=== PATIENT | female | born 1935 | race Caucasian/White ===

== ENCOUNTER 2019-05-09 05:25 | Emergency (ER) | payer MEDICARE ==
[~2019-05-09] VITALS: Ht 160 cm; Wt 60.8 kg
[~2019-05-09 05:25] MED LIST: ALBU90OI61 INH; ASPI325; ASPI325EC PO; ASPI81CH PO; ATEN50; ATOR40TA; BUDE6HFA INH; CHOL10002; CLOP75; CLOP75 PO; FOSI10; FURO40 PO; GABA100 PO; HYDACE5 PO; LISI20 PO; METO50 PO; METO50ER PO; NAPR220 PO; NITROGLYCERIN; PRAV10 PO; Percocet 5-3251 EACH PO; Pravachol40 MG PO
[2019-05-09 06:02] LABS: BASOPHILS ABSOLUTE AUTO 0.04 K/mm3 (0.00-0.23); BASOPHILS PERCENT AUTO 0 % (0-2); EOSINOPHILS ABSOLUTE AUTO 0.17 K/mm3 (0.00-0.68); EOSINOPHILS PERCENT AUTO 2 % (0-6); Hematocrit 44.8 % (33.0-51.0); Hemoglobin 14.6 g/dL (11.5-16.0); IMMATURE GRAN ABSOLUTE AUTO 0.03 K/mm3 (0.00-0.10); IMMATURE GRAN PERCENT AUTO 0 % (0-1); LYMPHOCYTES ABSOLUTE AUTO 1.61 K/mm3 (0.84-5.20); LYMPHOCYTES PERCENT AUTO 15 % (21-46); MONOCYTES ABSOLUTE AUTO 0.69 K/mm3 (0.16-1.47); MONOCYTES PERCENT AUTO 6 % (4-13); Mean Corpuscular HGB 30.4 pg (26.0-34.0); Mean Corpuscular HGB Conc 32.6 g/dL (31.5-36.5); Mean Corpuscular Volume 93 fL (80-100); NEUTROPHILS ABSOLUTE AUTO 8.54 K/mm3 (1.96-9.15); NEUTROPHILS PERCENT AUTO 77 % (41-73); RDW Coefficient Variation 13.2 % (11.7-14.2); RDW Standard Deviation 45.4 fL (35.1-46.3); Red Blood Cell Count 4.81 M/mm3 (3.80-5.20); White Blood Cell Count 11.08 K/mm3 (4.00-11.30)
[2019-05-09 06:10] LABS: Mean Platelet Volume 10.8 fL (9.1-12.4); Platelet Count 207 K/mm3 (150-400)
[2019-05-09 06:13] LABS: Alanine Aminotransfer (ALT/SGP 28 U/L (12-78); Albumin, Blood 3.6 g/dL (3.4-5.0); Alk Phos 67 U/L (50-136); Anion Gap 6 mmol/L (6-16); Aspartate Aminotrans (AST/SGOT 13 U/L (12-37); Bilirubin, Total 0.5 mg/dL (0.1-1.0); Blood Urea Nitrogen 16 mg/dL (8-24); Bun/Creatinine Ratio 31.1 (12.0-20.0); CO2, Blood 28 mmol/L (21-32); Calcium, Blood 8.6 mg/dL (8.5-10.1); Chloride, Blood 108 mmol/L (98-108); Creatinine, Blood 0.52 mg/dL (0.40-1.00); Globulin, Blood 3.6 g/dL (2.2-4.0); Glomerular Filtration Rate >60 (60-); Glucose, Blood 95 mg/dL (70-99); Potassium, Blood 3.9 mmol/L (3.5-5.5); Sodium, Blood 142 mmol/L (136-145); Total Protein, Blood 7.2 g/dL (6.4-8.2); Troponin I 0.027 ng/mL (0.000-0.040)
[2019-05-09] MEDS ORDERED: AZIT250 PO (07:45)
[2019-05-09] MEDS ORDERED: Prednisone20 MG PO (07:45)
== END 2019-05-09 08:11 | disposition home or self-care (01) ==
LOC: ER 05:25
PROVIDERS: Emergency Medicine
DX: J44.9 Chronic obstructive pulmonary disease, unspecified (principal); Z88.0 Allergy status to penicillin; Z88.2 Allergy status to sulfonamides; Z79.82 Long term (current) use of aspirin; Z79.899 Other long term (current) drug therapy; F17.210 Nicotine dependence, cigarettes, uncomplicated
CPT/HCPCS: 71046; 80053; 83880; 84484; 85025; 93005; 93010; 94640; 96374; 99285-25; J2930

== ENCOUNTER 2021-03-14 17:27 | Inpatient (IN) | payer MEDICARE ==
[~2021-03-14] VITALS: Ht 160 cm; Wt 66.8 kg
[~2021-03-14 17:27] MED LIST changes: +AZIT250 PO; +Prednisone20 MG PO
[2021-03-14 18:08] LABS: BASOPHILS ABSOLUTE AUTO 0.04 K/mm3 (0.00-0.23); BASOPHILS PERCENT AUTO 0 % (0-2); EOSINOPHILS ABSOLUTE AUTO 0.17 K/mm3 (0.00-0.68); EOSINOPHILS PERCENT AUTO 2 % (0-6); Hemoglobin 14.5 g/dL (11.5-16.0); IMMATURE GRAN ABSOLUTE AUTO 0.03 K/mm3 (0.00-0.10); IMMATURE GRAN PERCENT AUTO 0 % (0-1); LYMPHOCYTES ABSOLUTE AUTO 2.17 K/mm3 (0.84-5.20); LYMPHOCYTES PERCENT AUTO 23 % (21-46); MONOCYTES ABSOLUTE AUTO 0.72 K/mm3 (0.16-1.47); MONOCYTES PERCENT AUTO 8 % (4-13); Mean Corpuscular HGB 30.6 pg (26.0-34.0); Mean Corpuscular HGB Conc 32.2 g/dL (31.5-36.5); Mean Corpuscular Volume 95 fL (80-100); Mean Platelet Volume 10.8 fL (9.1-12.4); NEUTROPHILS ABSOLUTE AUTO 6.16 K/mm3 (1.96-9.15); NEUTROPHILS PERCENT AUTO 66 % (41-73); Platelet Count 202 K/mm3 (150-400); RDW Coefficient Variation 13.2 % (11.7-14.2); RDW Standard Deviation 46.3 fL (35.1-46.3); Red Blood Cell Count 4.74 M/mm3 (3.80-5.20); White Blood Cell Count 9.29 K/mm3 (4.00-11.30)
[2021-03-14 18:25] LABS: C-REACTIVE PROTEIN, EXT RANGE 0.701 mg/dL (0.000-0.300)
[2021-03-14 18:28] LABS: Alanine Aminotransfer (ALT/SGP 51 U/L (12-78); Albumin, Blood 3.3 g/dL (3.4-5.0); Albumin/Globulin Ratio 0.9 (0.8-1.8); Alk Phos 66 U/L (50-136); Anion Gap 4 mmol/L (6-16); Aspartate Aminotrans (AST/SGOT 33 U/L (12-37); Bilirubin, Total 0.7 mg/dL (0.1-1.0); Blood Urea Nitrogen 22 mg/dL (8-24); Bun/Creatinine Ratio 34.5 (12.0-20.0); CO2, Blood 27 mmol/L (21-32); Calcium, Blood 8.6 mg/dL (8.5-10.1); Chloride, Blood 107 mmol/L (98-108); Creatinine, Blood 0.64 mg/dL (0.40-1.00); Globulin, Blood 3.5 g/dL (2.2-4.0); Glomerular Filtration Rate >60 (60-); Glucose, Blood 88 mg/dL (70-99); Potassium, Blood 4.1 mmol/L (3.5-5.5); Sodium, Blood 138 mmol/L (136-145); Total Protein, Blood 6.8 g/dL (6.4-8.2)
[2021-03-14] MEDS ORDERED: OXYB5 (22:59)
[2021-03-14] MEDS ORDERED: LIPITOR80 MG PO (22:59)
[2021-03-14] MEDS ORDERED: STIOLTO RESPIMAT4 G1 IH (22:59)
[2021-03-15 00:11] LABS: SARS-Cov-2 (COVID-19) PCR, MMC NEGATIVE (NEGATIVE)
--- NOTE | 2021-03-15 01:16 | NUR ---
PT ALERT AND ORIENTED TO PERSON, TIME AND SITUATION. RESTING ON BED QUIETLY, NO ACUTE DISTRESS OBSERVED. NO COMPLAING OF PAIN
--- NOTE | 2021-03-15 05:10 | NUR ---
SHIFT SUMMARY RECEIVED PT FROM ER. REPORT RECEIVED FROM [facility]A ER NURSE. PT ALERT AND ORIENTED. DAUGHTER AT BEDSIDE. WHEN THIS NURSE WENT OVER MEDICATION. DISCREPENCIES FOUND IN SOME DOSAGE. TISHA WAS CALLED TO BRING MEDS FROM HOME TO VERIFY DOSAGE. FAMILY WANT TO BE INVOLVED IN CARE. PICTURE OF THE WOUND TAKEN, PLACE ON PT CHART. AND DRY DRESSING PUT OVER IT. KEEP MONITORING
[2021-03-15 08:49] LABS: Hemoglobin 14.8 g/dL (11.5-16.0); Mean Corpuscular HGB 30.7 pg (26.0-34.0); Mean Corpuscular HGB Conc 32.9 g/dL (31.5-36.5); Mean Corpuscular Volume 93 fL (80-100); Mean Platelet Volume 11.2 fL (9.1-12.4); Platelet Count 208 K/mm3 (150-400); RDW Coefficient Variation 13.2 % (11.7-14.2); RDW Standard Deviation 45.8 fL (35.1-46.3); Red Blood Cell Count 4.82 M/mm3 (3.80-5.20)
--- NOTE | 2021-03-15 17:57 | NUR ---
SHIFT SUMMARY PATIENT DENIES PAIN, NAUSEA, AND SHORTNESS OF BREATH. PATIENT IS A SBA TO THE BS. PATIENT HAD A BEDSIDE I&D PERFORMED TODAY BY DR. SALGADO. PATIENT TOLERATED WELL. WOUND VAC WAS PLACED. DR. SALGADO PLACED ORDERS FOR DRESSING CHANGES. PATIENT'S MED RED WAS COMPLETED, DAUGHTER BROUGHT MEDICATIONS. PATIENT IS EATING AND DRINING WELL. PATIENT IS PLEASANT AND COOPERATIVE WITH CARE.
[2021-03-15 21:24] LABS: Vancomycin, Trough 9.9 ug/mL (5.0-10.0)
--- NOTE | 2021-03-16 05:40 | NUR ---
SHIFT SUMMARY PATIENT ALERT AND ORIENTED. HAD NO COMPLAINTS OF PAIN OR SHORTNESS OF BREATH. NO ACUTE ISSUES NOTED OVERNIGHT. CALL LIGHT WITHIN REACH. REPORT GIVEN TO ONCOMING RN.
[2021-03-16] MEDS ORDERED: VISBIOME 112.51 EACH PO (11:50)
[2021-03-16] MEDS ORDERED: CLINDAMYCIN HC300 MG PO (11:52)
--- NOTE | 2021-03-16 13:35 | NUR ---
DISCHARGE NOTE PATIENT WAS DISCHARGED THIS SHIFT AT 1330 WITH DAUGHTER VIA WHEELCHAIR. THE PATIENT RECEIVED DISCHARGE INSTRUCTIONS, AND WOUND VAC TO TAKE HOME WITH THEM. PATIENT AND DAUGHTER VERBALIZED UNDERSTANDING OF INSTRUCTIONS.
== END 2021-03-16 13:30 | disposition home health service (06) | DRG 501 ==
LOC: ER 17:27 → MEDS 23:14 → ENPENDDIS 03-16 11:11 → MEDS 03-16 13:30
PROVIDERS: Internal Medicine; Physician Assistant; Student in an Organized Health Care Education/Training Program; ADMIT Internal Medicine
PROC: 0M940ZZ Drainage of Left Elbow Bursa and Ligament, Open Approach (ICD-10-PCS; principal; 2021-03-15)
PROC: 0MB40ZZ Excision of Left Elbow Bursa and Ligament, Open Approach (ICD-10-PCS; 2021-03-15)
DX: M71.122 Other infective bursitis, left elbow (principal); L03.114 Cellulitis of left upper limb; J44.9 Chronic obstructive pulmonary disease, unspecified; Z20.822 Contact with and (suspected) exposure to COVID-19; F17.210 Nicotine dependence, cigarettes, uncomplicated; I25.10 Atherosclerotic heart disease of native coronary artery without angina pectoris; I73.9 Peripheral vascular disease, unspecified; Z88.2 Allergy status to sulfonamides; Z85.3 Personal history of malignant neoplasm of breast; Z88.0 Allergy status to penicillin; Z95.5 Presence of coronary angioplasty implant and graft; Z95.2 Presence of prosthetic heart valve; Z98.890 Other specified postprocedural states; Z79.02 Long term (current) use of antithrombotics/antiplatelets; Z79.899 Other long term (current) drug therapy
CPT/HCPCS: 36415; 73080; 80053; 80202; 83605; 85025; 85027; 85651; 86140; 87040; 87070; 87077; 87186; 87205; 94640; 94760; 96365; 96366; 96372; 99284-25; A9270; G0378; J1650; J3370; J7030; U0004

== ENCOUNTER 2021-04-13 11:49 | Emergency (ER) | payer MEDICARE ==
[~2021-04-13] VITALS: Ht 160 cm; Wt 65.8 kg
[~2021-04-13 11:49] MED LIST changes: +CLINDAMYCIN HC300 MG PO; +LIPITOR80 MG PO; +OXYB5; +STIOLTO RESPIMAT4 G1 IH; +VISBIOME 112.51 EACH PO
[2021-04-13 12:26] LABS: BASOPHILS ABSOLUTE AUTO 0.03 K/mm3 (0.00-0.23); BASOPHILS PERCENT AUTO 0 % (0-2); EOSINOPHILS PERCENT AUTO 1 % (0-6); Hematocrit 41.6 % (33.0-51.0); Hemoglobin 13.5 g/dL (11.5-16.0); IMMATURE GRAN ABSOLUTE AUTO 0.05 K/mm3 (0.00-0.10); IMMATURE GRAN PERCENT AUTO 0 % (0-1); LYMPHOCYTES ABSOLUTE AUTO 1.62 K/mm3 (0.84-5.20); LYMPHOCYTES PERCENT AUTO 13 % (21-46); MONOCYTES PERCENT AUTO 6 % (4-13); Mean Corpuscular HGB 30.5 pg (26.0-34.0); Mean Corpuscular HGB Conc 32.5 g/dL (31.5-36.5); Mean Corpuscular Volume 94 fL (80-100); Mean Platelet Volume 11.9 fL (9.1-12.4); NEUTROPHILS ABSOLUTE AUTO 9.97 K/mm3 (1.96-9.15); NEUTROPHILS PERCENT AUTO 79 % (41-73); Platelet Count 160 K/mm3 (150-400); RDW Coefficient Variation 13.5 % (11.7-14.2); RDW Standard Deviation 46.8 fL (35.1-46.3); Red Blood Cell Count 4.42 M/mm3 (3.80-5.20); White Blood Cell Count 12.57 K/mm3 (4.00-11.30)
[2021-04-13 12:45] LABS: Alanine Aminotransfer (ALT/SGP 24 U/L (12-78); Albumin, Blood 2.9 g/dL (3.4-5.0); Albumin/Globulin Ratio 0.7 (0.8-1.8); Alk Phos 59 U/L (50-136); Anion Gap 8 mmol/L (6-16); Aspartate Aminotrans (AST/SGOT 24 U/L (12-37); Bilirubin, Total 0.6 mg/dL (0.1-1.0); Blood Urea Nitrogen 24 mg/dL (8-24); Bun/Creatinine Ratio 38.5 (12.0-20.0); CO2, Blood 28 mmol/L (21-32); Calcium, Blood 8.7 mg/dL (8.5-10.1); Chloride, Blood 103 mmol/L (98-108); Creatinine, Blood 0.62 mg/dL (0.40-1.00); Globulin, Blood 4.1 g/dL (2.2-4.0); Glomerular Filtration Rate >60 (60-); Glucose, Blood 107 mg/dL (70-99); Potassium, Blood 3.6 mmol/L (3.5-5.5); Sodium, Blood 139 mmol/L (136-145)
[2021-04-13] MEDS ORDERED: DOXY100 PO (14:12)
== END 2021-04-13 14:40 | disposition home or self-care (01) ==
LOC: ER 11:49
PROVIDERS: Physician Assistant
DX: L03.114 Cellulitis of left upper limb (principal); J44.9 Chronic obstructive pulmonary disease, unspecified; F17.210 Nicotine dependence, cigarettes, uncomplicated; Z88.0 Allergy status to penicillin; Z88.2 Allergy status to sulfonamides; Z79.899 Other long term (current) drug therapy
CPT/HCPCS: 36415; 80053; 85025; 93971; 99284-25; A9270; J7030

== ENCOUNTER 2021-04-17 01:52 | Day surgery (SDC) | payer MEDICARE ==
[~2021-04-17 01:52] MED LIST changes: +DOXY100 PO
== END 2021-04-17 23:18 | disposition home or self-care (01) ==
LOC: WOUND 01:52
DX: M71.122 Other infective bursitis, left elbow (principal); L03.114 Cellulitis of left upper limb; Z88.0 Allergy status to penicillin; Z88.2 Allergy status to sulfonamides; Z87.891 Personal history of nicotine dependence
CPT/HCPCS: A9270; G0463

== ENCOUNTER 2021-04-24 01:55 | Day surgery (SDC) | payer MEDICARE | END 2021-04-24 23:00 | disposition home or self-care (01) | LOC: WOUND 01:55 | DX: L03.119 Cellulitis of unspecified part of limb (principal); M71.122 Other infective bursitis, left elbow | CPT/HCPCS: G0463 ==

== ENCOUNTER 2021-05-01 05:11 | Day surgery (SDC) | payer MEDICARE | END 2021-05-01 23:13 | disposition home or self-care (01) | LOC: WOUND 05:11 | DX: L03.119 Cellulitis of unspecified part of limb (principal); M71.122 Other infective bursitis, left elbow | CPT/HCPCS: A9270; G0463 ==

== ENCOUNTER 2021-05-22 07:39 | Day surgery (SDC) | payer MEDICARE | END 2021-05-23 23:50 | disposition home or self-care (01) | LOC: WOUND 07:39 | DX: M71.122 Other infective bursitis, left elbow (principal); L03.114 Cellulitis of left upper limb | CPT/HCPCS: A9270; G0463 ==

== ENCOUNTER 2021-05-30 02:05 | Inpatient (IN) | payer MEDICARE ==
[~2021-05-30] VITALS: Ht 157.5 cm; Wt 67.6 kg
[2021-05-30 02:44] LABS: BASOPHILS ABSOLUTE AUTO 0.08 K/mm3 (0.00-0.23); BASOPHILS PERCENT AUTO 1 % (0-2); EOSINOPHILS ABSOLUTE AUTO 0.38 K/mm3 (0.00-0.68); EOSINOPHILS PERCENT AUTO 3 % (0-6); Hematocrit 45.1 % (33.0-51.0); Hemoglobin 14.4 g/dL (11.5-16.0); IMMATURE GRAN ABSOLUTE AUTO 0.04 K/mm3 (0.00-0.10); IMMATURE GRAN PERCENT AUTO 0 % (0-1); LYMPHOCYTES ABSOLUTE AUTO 3.87 K/mm3 (0.84-5.20); LYMPHOCYTES PERCENT AUTO 32 % (21-46); MONOCYTES ABSOLUTE AUTO 0.67 K/mm3 (0.16-1.47); MONOCYTES PERCENT AUTO 6 % (4-13); Mean Corpuscular HGB 30.6 pg (26.0-34.0); Mean Corpuscular HGB Conc 31.9 g/dL (31.5-36.5); Mean Corpuscular Volume 96 fL (80-100); NEUTROPHILS ABSOLUTE AUTO 7.05 K/mm3 (1.96-9.15); NEUTROPHILS PERCENT AUTO 58 % (41-73); RDW Coefficient Variation 13.8 % (11.7-14.2); RDW Standard Deviation 49.5 fL (35.1-46.3); Red Blood Cell Count 4.71 M/mm3 (3.80-5.20); White Blood Cell Count 12.09 K/mm3 (4.00-11.30)
[2021-05-30 02:48] LABS: Platelet Count 185 K/mm3 (150-400)
[2021-05-30 03:02] LABS: Alanine Aminotransfer (ALT/SGP 19 U/L (12-78); Albumin/Globulin Ratio 1.2 (0.8-1.8); Alk Phos 59 U/L (50-136); Anion Gap 7 mmol/L (6-16); Aspartate Aminotrans (AST/SGOT 19 U/L (12-37); Bilirubin, Total 0.5 mg/dL (0.1-1.0); Blood Urea Nitrogen 30 mg/dL (8-24); Bun/Creatinine Ratio 50.8 (12.0-20.0); CO2, Blood 27 mmol/L (21-32); Calcium, Blood 8.6 mg/dL (8.5-10.1); Chloride, Blood 105 mmol/L (98-108); Creatinine, Blood 0.59 mg/dL (0.40-1.00); Globulin, Blood 3.4 g/dL (2.2-4.0); Glomerular Filtration Rate >60 (60-); Glucose, Blood 183 mg/dL (70-99); Potassium, Blood 4.4 mmol/L (3.5-5.5); Sodium, Blood 139 mmol/L (136-145); Total Protein, Blood 7.4 g/dL (6.4-8.2); Troponin I <0.015 ng/mL (0.000-0.040)
[2021-05-30 03:21] LABS: Influenza A, PCR NEGATIVE (NEGATIVE); Influenza B, PCR NEGATIVE (NEGATIVE); Resp Syncytial Virus, PCR NEGATIVE (NEGATIVE); SARS-Cov-2 (COVID-19) PCR, MMC NEGATIVE (NEGATIVE)
[2021-05-30 05:29] LABS: Base Excess Venous 3.1 mmol/L; Bicarbonate Venous 25.3 mmol/L (24.0-30.0); PCO2 Venous 55.6 mmHg (38-42); PO2 Venous 37.7 mmHg (38-42); pH Blood Venous 7.33 (7.34-7.37)
[2021-05-30 10:28] LABS: Source, Urine Voided
[2021-05-30 10:31] LABS: Appearance, Urine Clear (Clear); Bilirubin, Urine Neg (Neg); Blood, Urine Neg (Neg); Color, Urine Yellow (P-Yellow); Glucose Qualitative, Urine Neg (Neg); Ketones, Urine Neg (Neg); Leukocyte Esterase, Urine Neg (Neg); Nitrite, Urine Neg (Neg); Protein, Urine 3+ (Neg); Urobilinogen, Urine NORM (Normal)
[2021-05-30 10:55] LABS: Red Blood Cells, Urine Not Seen /hpf (0-2); Squamous Epithelial Cells Rare /hpf (Few); White Blood Cells, Urine 0-2 /hpf (0-5)
[2021-05-30 10:56] LABS: Bacteria Rare /hpf; Hyaline Casts 0-2 /lpf (0-2); Mucus Mod (0-Heavy)
--- NOTE | 2021-05-30 17:14 | NUR ---
PT ARRIVED IN THE ROOM FROM ER APPROX 1445 REPORT RECEIVED FROM REJI RN, PT TRANSFERRED SBA FROM STRETCHER TO BED WITH NO ISSUES. PT IS HERE FOR ACUTE RESPI FAILURE. ALERT AND ORIENTED X4, PLEASANT AND COOPERATIVE. VITALS HRR SINUS WITH PAC'S AND PVC'S AT 90'S, BP SYSTOLIC 120'S, SATS ABOVE 95% ON RA, MILD SOB WITH EXERTION BIPAP ON STANDBY, AFEBRILE. PT HAS 1+ BILATERAL LE EDEMA, REDNESS ON COCCYX, HAS AN ALMOST HEALED SCAB ON LEFT ELBOW FROM PREVIOUS SURGERY PER PT. PT DENIES ANY PAIN. SON AT BEDSIDE AWARE OF THE PLAN OF CARE. COPY OF POLST ON FILE VERIFIED PT'S CODE STATUS WHICH IS CPR/FULL CODE. NO OTHER ISSUES REPORTED AT THIS TIME, PT ORIENTED TO ROOM AND USE OF CALL LIGHTS, ABLE TO MAKE NEEDS KNOWN, WILL MONITOR
[2021-05-31 04:17] LABS: Hematocrit 38.5 % (33.0-51.0); Hemoglobin 12.2 g/dL (11.5-16.0); Mean Corpuscular HGB 30.4 pg (26.0-34.0); Mean Corpuscular HGB Conc 31.7 g/dL (31.5-36.5); Mean Corpuscular Volume 96 fL (80-100); Mean Platelet Volume 11.7 fL (9.1-12.4); Platelet Count 190 K/mm3 (150-400); RDW Coefficient Variation 14.1 % (11.7-14.2); Red Blood Cell Count 4.01 M/mm3 (3.80-5.20); White Blood Cell Count 11.54 K/mm3 (4.00-11.30)
--- NOTE | 2021-05-31 05:22 | NUR ---
SHIFT SUMMARY PT RESTED WELL THROUGH THE NIGHT. ALERT AND ORIENTED, ABLE TO MAKE NEEDS KNOWN. COOPERATIVE WITH PLAN OF CARE. SATS >95% ON 2LNC, STEROIDS AND BREATHING TREATMENTS. BP SLIGHTLY ELEVATED, GAVE HYDRALAZINE WITH IMPROVEMENTS TO BP. TELE READS NSR - RATE 96. NO C/O CHEST PAIN. STAND BY ASSIST TO BSC - ADEQUATE UOP. NO PAIN. VSS. CALL LIGHT WITHIN REACH, BED IN LOWEST POSITION. WILL CONTINUE TO MONITOR.
[2021-05-31 05:23] LABS: Anion Gap 9 mmol/L (6-16); Blood Urea Nitrogen 29 mg/dL (8-24); Bun/Creatinine Ratio 53.8 (12.0-20.0); CO2, Blood 26 mmol/L (21-32); Chloride, Blood 104 mmol/L (98-108); Creatinine, Blood 0.54 mg/dL (0.40-1.00); Glomerular Filtration Rate >60 (60-); Glucose, Blood 128 mg/dL (70-99); Potassium, Blood 4.2 mmol/L (3.5-5.5); Sodium, Blood 139 mmol/L (136-145)
--- NOTE | 2021-05-31 12:05 | NUR ---
PATIENT ALERT AND ORIENTED X4. NEURO WNL. HISTORY OF STENTS IN LOWER LEGS PER PATIENT. PERRLA. DENIES NUMBNESS/TINGLING. USING BSC WITH SBA. ON 2L WHEN SLEEPING, AT THIS TIME SATING MID 90'S ON ROOM AIR. TELE SHOWING SINUS RHYTHM. DENIES CHEST PAIN/PRESSURE. VITAL SIGNS STABLE. DENIES OVERALL PAIN. ATTENDS IN PLACE. SKIN OVERALL FRAGILE AND REDNESS. HISTORY OF ELBOW WOUND THAT IS HEALING, CLEANED WITH IODINE AND DRESSED. WILL CONTINUE TO MONITOR.
--- NOTE | 2021-05-31 14:05 | NUR ---
TRANSFER: NO ACUTE CHANGES. SEE PREVIOUS NOTE. REPORTED OFF TO RN. TRANSFER UP TO MEDICAL FLOOR VIA WHEELCHAIR WITH ALL PERSONAL BELONGINGS.
--- NOTE | 2021-05-31 15:04 | NUR ---
PT CAME IN FROM PCU WITH ACUTE RESPT FAILURE WITH HYPOXIA WITH COPD EXACERBATION. ON RA, DYSPNEA ON EXERTION. PT IS ON 2L AT HOME WHEN SLEPING AT BASELINE. PT ALSO CAME IN WITH HTN CRISIS. PT HX OF CAD, NONHEALING LEFT ELBOW ULCER, OSAGE, NEUROPATHIC PAIN, AND AORIC VALVE REPLACEMENT. PT TAKES PILLS WHOLE. SHE IS ALERT AND ORIENTED X4. SON JASIEL AT BEDSIDE WHO IS THE PRIMARY SENIOR SCIENCE CONSULTANT. PT VERY PLEASANT. NS ON TELE PER GIG TENDER. PT HAS SCATTERRED REDDENED AND FRAGILE SKIN. DRESSED THE WOUND ON L ELBOW. PT HAS 20G ON LHAND,NO TELE.STANDBY ASSIST. CALL LIGHT IN REACH.
--- NOTE | 2021-05-31 17:41 | NUR ---
SHIFT SUMMARY PT AOX4; VERY [place]. SON IS PRIMARY CARE FOR THIS PT. PT IS ON 2L OF O2 ESPECIALLY DURING SLEEP. DYSPNEA ON EXERTION. DRESSING PLACED ON L ELBOW. RED BUTTOM; PT INDEPENDENTLY REPOSITION. STANDBY ASSIST. BED IS IN LOWEST POSITION AND CALL LIGHT WITHIN REACH.
[2021-06-01 04:43] LABS: Hemoglobin 13.1 g/dL (11.5-16.0); Mean Corpuscular HGB 30.6 pg (26.0-34.0); Mean Corpuscular Volume 96 fL (80-100); Mean Platelet Volume 11.1 fL (9.1-12.4); Platelet Count 180 K/mm3 (150-400); RDW Coefficient Variation 14.3 % (11.7-14.2); RDW Standard Deviation 50.3 fL (35.1-46.3); Red Blood Cell Count 4.28 M/mm3 (3.80-5.20); White Blood Cell Count 14.72 K/mm3 (4.00-11.30)
--- NOTE | 2021-06-01 05:00 | NUR ---
SHIFT SUMMARY PT HAS RESTED MOST OF THE NIGHT. PT STILL GETS VERY SOB WITH MINIMAL EXERTION. AFTER AMBULATING A SHORT DISTANCE FROM BED TO BSC AND BACK IT TAKES PT SEVERAL MINUTES TO RECOVER. PT EVEN REQUESTED THAT I INCREASE HER O2 FROM 2L TO 4L UNTIL SHE RECOVERED. PT O2 INCREASED AFTER AMBULATION FOR A SHORT PERIOD PER PT REQUEST AND DECREASED BACK DOWN TO 2L ONCE SHE RECOVERED. IV SOLUMEDROL CONTINUED ORDERED. PT HYPERTENSIVE THIS SHIFT, MEDICATED WITH HYDRALYZINE WITH AFFECT. PT HAD A SMALL BM THIS SHIFT, AND IS VOIDING WITHOUT DIFFICULTY NO ACUTE CHANGES TO REPORT OVERNIGHT. BED IN LOWEST POSITION, CALL LIGHT WITHIN REACH.
[2021-06-01 06:13] LABS: Albumin, Blood 3.5 g/dL (3.4-5.0); Anion Gap 7 mmol/L (6-16); Blood Urea Nitrogen 32 mg/dL (8-24); Bun/Creatinine Ratio 59.5 (12.0-20.0); CO2, Blood 25 mmol/L (21-32); Calcium, Blood 8.8 mg/dL (8.5-10.1); Chloride, Blood 105 mmol/L (98-108); Creatinine, Blood 0.54 mg/dL (0.40-1.00); Glomerular Filtration Rate >60 (60-); Glucose, Blood 139 mg/dL (70-99); Phosphorus, Blood 3.9 mg/dL (2.5-4.9); Potassium, Blood 4.5 mmol/L (3.5-5.5); Sodium, Blood 137 mmol/L (136-145)
--- NOTE | 2021-06-01 16:55 | NUR ---
SHIFT SUMMARRY PT AOX4; CALLS APPROPRIATELY. PT HAD A CHEST XRAY THIS AFTERNOON. PT RECEIVED A DOSE OF ABX, CONTINUING TO DIURESE THIS PT PER ORDER. PT STANDBY ASSIST. ON 2L OF O2; NO OTHER ACUTE CHANGES. BED IS IN THE LOWEST POSITION AND CALL LIGHT WITHIN REACH
[2021-06-02 04:29] LABS: Hematocrit 40.9 % (33.0-51.0); Hemoglobin 12.9 g/dL (11.5-16.0); Mean Corpuscular HGB 30.1 pg (26.0-34.0); Mean Corpuscular HGB Conc 31.5 g/dL (31.5-36.5); Mean Corpuscular Volume 95 fL (80-100); Mean Platelet Volume 11.1 fL (9.1-12.4); Platelet Count 178 K/mm3 (150-400); RDW Coefficient Variation 14.1 % (11.7-14.2); RDW Standard Deviation 49.4 fL (35.1-46.3); Red Blood Cell Count 4.29 M/mm3 (3.80-5.20); White Blood Cell Count 12.45 K/mm3 (4.00-11.30)
[2021-06-02 05:52] LABS: Albumin, Blood 3.3 g/dL (3.4-5.0); Anion Gap 9 mmol/L (6-16); Blood Urea Nitrogen 37 mg/dL (8-24); Bun/Creatinine Ratio 57.4 (12.0-20.0); CO2, Blood 29 mmol/L (21-32); Calcium, Blood 8.3 mg/dL (8.5-10.1); Chloride, Blood 102 mmol/L (98-108); Creatinine, Blood 0.65 mg/dL (0.40-1.00); Glomerular Filtration Rate >60 (60-); Glucose, Blood 129 mg/dL (70-99); Phosphorus, Blood 4.2 mg/dL (2.5-4.9); Potassium, Blood 4.6 mmol/L (3.5-5.5); Sodium, Blood 140 mmol/L (136-145)
--- NOTE | 2021-06-02 07:02 | NUR ---
85 YEAR OLD FEMALE EXSMOKER QUIT WITHIN LAST YEAR HAS BASELINE OXYGEN USE 2 L NC AT [facility]. lt ELBOW WITH CDI FOAM DRESSING. haS HELP AT HOME FROM sON
[2021-06-02] MEDS ORDERED: OXYB5 PO (11:49)
[2021-06-02] MEDS ORDERED: VITAMIN D5000 UNIT PO (11:50)
[2021-06-02] MEDS ORDERED: AZIT250 PO (11:50)
[2021-06-02] MEDS ORDERED: FURO20 PO (11:51)
[2021-06-02] MEDS ORDERED: Pulmicort Fle180 MCG INH (11:51)
[2021-06-02] MEDS ORDERED: Prednisone10 MG (11:53)
--- NOTE | 2021-06-02 13:15 | NUR ---
DISCHARGE NOTE PT DISCHARGING TO HOME TODAY WITH SON. PATIENT IS AxOx4. PLEASANT AND COOPERATIVE WITH CARE. PT GOING HOME WITH HOME HEALTH ORDERS. PT GIVEN DC INSTRUCTIONS, INCLUDING DC MEDS, PATIENT EDUCATION AND HH REFERRAL. PT SON ON PHONE LISTENING TO DC INSTRUCTIONS. BOTH VERBALIZED UNDERSTANDING AND NO FURTHER QUESTIONS. VITALS REVIEWED. PT SAFELY ESCORTED OUT VIA WC TO PRIVATE TRANSPORT.
--- NOTE | 2021-06-03 08:50 | NUR ---
Patient is a [facility] patient who was transferred to [facility] on 05/30/2021 due to acute respiratory failure with hypoxia. Patient discharged 06/02/2021 with resumption of home health orders. Gathered supporting documentation for resumption (face sheet, discharge order, med list, and H&P) and faxed to [facility] for review. No further interventions required. Yahaira Cruz Referral Liaison
== END 2021-06-02 13:24 | disposition home health service (06) | DRG 291 ==
LOC: ER 02:05 → ERHOLD 04:58 → MEDS 04:58 → PCU 04:58 → MEDS 05-31 13:55
PROVIDERS: Internal Medicine; Student in an Organized Health Care Education/Training Program; ADMIT Family Medicine
DX: I11.0 Hypertensive heart disease with heart failure (principal); J96.21 Acute and chronic respiratory failure with hypoxia; I50.33 Acute on chronic diastolic (congestive) heart failure; I24.8 Other forms of acute ischemic heart disease; I16.1 Hypertensive emergency; J44.1 Chronic obstructive pulmonary disease with (acute) exacerbation; I25.10 Atherosclerotic heart disease of native coronary artery without angina pectoris; Z20.822 Contact with and (suspected) exposure to COVID-19; Z95.5 Presence of coronary angioplasty implant and graft; Z95.3 Presence of xenogenic heart valve; G62.9 Polyneuropathy, unspecified; I73.9 Peripheral vascular disease, unspecified; Z99.81 Dependence on supplemental oxygen; E78.5 Hyperlipidemia, unspecified; Z88.2 Allergy status to sulfonamides; Z88.0 Allergy status to penicillin; Z85.51 Personal history of malignant neoplasm of bladder; Z79.899 Other long term (current) drug therapy; Z87.891 Personal history of nicotine dependence; D72.828 Other elevated white blood cell count; L98.499 Non-pressure chronic ulcer of skin of other sites with unspecified severity; M71.522 Other bursitis, not elsewhere classified, left elbow; Z53.29 Procedure and treatment not carried out because of patient's decision for other reasons
CPT/HCPCS: 0241U; 36415; 71045; 71046; 80048; 80053; 80069; 81001; 82803; 83880; 84145; 84484; 85025; 85027; 93005; 93010; 93306; 94640; 94644; 94660; 94760; 94762; 96374; 96375; 96376; 97110; 97116; 97161; 97165; 97530; 97535; 99285-25; A9270; J0360; J0456; J1650; J1940; J2930; J7050

== ENCOUNTER 2021-06-05 05:17 | Day surgery (SDC) | payer MEDICARE ==
[~2021-06-05 05:17] MED LIST changes: +FURO20 PO; +OXYB5 PO; +Prednisone10 MG; +Pulmicort Fle180 MCG INH; +VITAMIN D5000 UNIT PO
== END 2021-06-05 12:00 | disposition home or self-care (01) ==
LOC: WOUND 05:17
DX: Z09 Encounter for follow-up examination after completed treatment for conditions other than malignant neoplasm (principal); I11.9 Hypertensive heart disease without heart failure
CPT/HCPCS: A9270; G0463

== ENCOUNTER 2021-08-01 01:58 | Inpatient (IN) | payer MEDICARE ==
[~2021-08-01] VITALS: Ht 162.6 cm; Wt 66.8 kg
[~2021-08-01 01:58] MED LIST changes: -FURO20 PO
[2021-08-01 02:15] LABS: BASOPHILS ABSOLUTE AUTO 0.09 K/mm3 (0.00-0.23); BASOPHILS PERCENT AUTO 1 % (0-2); EOSINOPHILS PERCENT AUTO 3 % (0-6); Hematocrit 43.6 % (33.0-51.0); Hemoglobin 13.6 g/dL (11.5-16.0); IMMATURE GRAN ABSOLUTE AUTO 0.04 K/mm3 (0.00-0.10); IMMATURE GRAN PERCENT AUTO 0 % (0-1); LYMPHOCYTES ABSOLUTE AUTO 2.91 K/mm3 (0.84-5.20); LYMPHOCYTES PERCENT AUTO 21 % (21-46); MONOCYTES ABSOLUTE AUTO 0.72 K/mm3 (0.16-1.47); MONOCYTES PERCENT AUTO 5 % (4-13); Mean Corpuscular HGB 30.4 pg (26.0-34.0); Mean Corpuscular HGB Conc 31.2 g/dL (31.5-36.5); Mean Corpuscular Volume 97 fL (80-100); Mean Platelet Volume 11.4 fL (9.1-12.4); NEUTROPHILS ABSOLUTE AUTO 9.51 K/mm3 (1.96-9.15); NEUTROPHILS PERCENT AUTO 70 % (41-73); Platelet Count 194 K/mm3 (150-400); RDW Coefficient Variation 13.7 % (11.7-14.2); RDW Standard Deviation 49.1 fL (35.1-46.3); Red Blood Cell Count 4.48 M/mm3 (3.80-5.20); White Blood Cell Count 13.67 K/mm3 (4.00-11.30)
[2021-08-01 02:37] LABS: Alanine Aminotransfer (ALT/SGP 41 U/L (12-78); Albumin/Globulin Ratio 1.2 (0.8-1.8); Alk Phos 58 U/L (50-136); Anion Gap 5 mmol/L (6-16); Aspartate Aminotrans (AST/SGOT 32 U/L (12-37); Bilirubin, Total 0.7 mg/dL (0.1-1.0); Blood Urea Nitrogen 21 mg/dL (8-24); Bun/Creatinine Ratio 28.5 (12.0-20.0); CO2, Blood 30 mmol/L (21-32); Calcium, Blood 8.7 mg/dL (8.5-10.1); Chloride, Blood 107 mmol/L (98-108); Creatinine, Blood 0.74 mg/dL (0.40-1.00); Globulin, Blood 3.3 g/dL (2.2-4.0); Glomerular Filtration Rate >60 (60-); Glucose, Blood 140 mg/dL (70-99); Sodium, Blood 142 mmol/L (136-145); Total Protein, Blood 7.3 g/dL (6.4-8.2)
[2021-08-01 02:40] LABS: PCO2 Arterial 48.1 mmHg (35-45); PO2 Arterial 77.9 mmHg (80-100); pH Blood Arterial 7.36 (7.35-7.45)
[2021-08-01 03:04] LABS: Influenza A, PCR NEGATIVE (NEGATIVE); Influenza B, PCR NEGATIVE (NEGATIVE); Resp Syncytial Virus, PCR NEGATIVE (NEGATIVE); SARS-Cov-2 (COVID-19) PCR, MMC NEGATIVE (NEGATIVE)
[2021-08-01 11:42] LABS: Source, Urine Clean Catch
[2021-08-01 11:50] LABS: Bilirubin, Urine Neg (Neg); Blood, Urine Neg (Neg); Glucose Qualitative, Urine Neg (Neg); Ketones, Urine Neg (Neg); Leukocyte Esterase, Urine Neg (Neg); Nitrite, Urine Neg (Neg); Protein, Urine Neg (Neg); Urobilinogen, Urine NORM (Normal)
[2021-08-01 11:58] LABS: Appearance, Urine Clear (Clear); Color, Urine Pale Yellow (P-Yellow)
--- NOTE | 2021-08-01 17:19 | NUR ---
SHIFT SUMMARY PT HAS BEEN RESTING IN ROOM, THEY SPENT SEVERAL HOURS IN THE BEDSIDE CHAIR AND WERE ABLE TO TRANSFER BY STANDBY ASSIST. PT HAS HAD NO EPISODES OF SHORTNESS OF BREATH AND HAS TOLERATED 1L NC, MAINTAINING SPO2 OF 88-92%. PT HAS NOT BEEN WILLING TO ATTEMPT TO AMBULATE TO RESTROOM YET. SBP HAS COME DOWN AFTER PO MEDS WERE GIVEN THIS AM, 125/72 OF 163. PT HAS DENIED C/O PAIN OR DISCOMFORT AND IS ABLE TO REPOSITION SELF FOR PRESSURE AND COMFORT.
--- NOTE | 2021-08-01 21:43 | NUR ---
Assumed care of pt at 1900. A/Ox4. Denies any pain, CP/pressure. Maintains above 95% on 1L NC, clear upper lobes and dim at bases. Mild nonproductive cough. Ventricular trigeminy on tele avg 100. +2 pitting edema in bl ankles, and +1 pitting edema bl lower legs. BP elevated with SBP 150-160. Patient is steady on her feet to BSC. Will update as changes occur.
[2021-08-02] MEDS ORDERED: AMLO5 PO (09:33)
--- NOTE | 2021-08-02 11:37 | NUR ---
DISCHARGE SUMMARY PT WAS TRANSPORTED BY WHEELCHAIR TO PERSONAL VEHICLE IN THE CARE OF A FAMILY MEMBER. ALL QUESTIONS AND CONCERNS WERE ADDRESSED PRIOR TO DISCHARGE AND PT WAS GIVEN CONTACT INFORMATION FOR ANY FURTHER QUIESTIONS OR CONCERNS. ALL BELONGINGS AND DISCHARGE INSTRUCTIONS WERE IN THE PT'S POSSESSION AT TIME OF TRANSPORT. PT STATED AN UNDERSTANDING OF THE IMPORTANCE OF ADHERING TO PRESCRIBED MEDICATIONS.
== END 2021-08-02 11:14 | disposition home or self-care (01) | DRG 291 ==
LOC: ER 01:58 → ERHOLD 05:53 → PCU 06:49
PROVIDERS: Emergency Medicine; ADMIT Internal Medicine
PROC: 5A09357 Assistance with Respiratory Ventilation, Less than 24 Consecutive Hours, Continuous Positive Airway Pressure (ICD-10-PCS; principal; 2021-08-01)
DX: I11.0 Hypertensive heart disease with heart failure (principal); I50.33 Acute on chronic diastolic (congestive) heart failure; J96.01 Acute respiratory failure with hypoxia; J44.1 Chronic obstructive pulmonary disease with (acute) exacerbation; I16.1 Hypertensive emergency; I25.10 Atherosclerotic heart disease of native coronary artery without angina pectoris; Z88.2 Allergy status to sulfonamides; Z88.0 Allergy status to penicillin; Z99.81 Dependence on supplemental oxygen; Z79.899 Other long term (current) drug therapy; Z79.02 Long term (current) use of antithrombotics/antiplatelets; F17.210 Nicotine dependence, cigarettes, uncomplicated; Z95.2 Presence of prosthetic heart valve; Z85.51 Personal history of malignant neoplasm of bladder; I73.9 Peripheral vascular disease, unspecified; Z20.822 Contact with and (suspected) exposure to COVID-19
CPT/HCPCS: 0241U; 36415; 36600; 71045; 80053; 81003; 82803; 83605; 83880; 84145; 84484; 85025; 93005; 93010; 93308; 93321; 94660; 94760; 96374; 96375; 99285-25; A9270; J1940; J2930

== ENCOUNTER 2021-12-26 14:07 | Emergency (ER) | payer MEDICARE ==
[~2021-12-26] VITALS: Ht 165.1 cm; Wt 66.2 kg
[~2021-12-26 14:07] MED LIST changes: +AMLO5 PO
[2021-12-26 15:24] LABS: BASOPHILS ABSOLUTE AUTO 0.06 K/mm3 (0.00-0.23); BASOPHILS PERCENT AUTO 1 % (0-2); EOSINOPHILS ABSOLUTE AUTO 0.12 K/mm3 (0.00-0.68); EOSINOPHILS PERCENT AUTO 1 % (0-6); Hematocrit 36.5 % (33.0-51.0); Hemoglobin 12.1 g/dL (11.5-16.0); IMMATURE GRAN ABSOLUTE AUTO 0.05 K/mm3 (0.00-0.10); IMMATURE GRAN PERCENT AUTO 0 % (0-1); LYMPHOCYTES ABSOLUTE AUTO 1.23 K/mm3 (0.84-5.20); LYMPHOCYTES PERCENT AUTO 11 % (21-46); MONOCYTES ABSOLUTE AUTO 1.18 K/mm3 (0.16-1.47); MONOCYTES PERCENT AUTO 10 % (4-13); Mean Corpuscular HGB 31.2 pg (26.0-34.0); Mean Corpuscular HGB Conc 33.2 g/dL (31.5-36.5); Mean Corpuscular Volume 94 fL (80-100); Mean Platelet Volume 11.5 fL (9.1-12.4); NEUTROPHILS ABSOLUTE AUTO 8.66 K/mm3 (1.96-9.15); NEUTROPHILS PERCENT AUTO 77 % (41-73); Platelet Count 244 K/mm3 (150-400); RDW Coefficient Variation 12.7 % (11.7-14.2); RDW Standard Deviation 43.6 fL (35.1-46.3); Red Blood Cell Count 3.88 M/mm3 (3.80-5.20)
[2021-12-26 15:41] LABS: Albumin, Blood 3.1 g/dL (3.4-5.0); Albumin/Globulin Ratio 0.9 (0.8-1.8); Bilirubin, Total 0.8 mg/dL (0.1-1.0); Bun/Creatinine Ratio 32.6 (12.0-20.0); Calcium, Blood 8.6 mg/dL (8.5-10.1); Creatinine, Blood 0.61 mg/dL (0.40-1.00); Globulin, Blood 3.6 g/dL (2.2-4.0); Potassium, Blood 3.3 mmol/L (3.5-5.5); Total Protein, Blood 6.7 g/dL (6.4-8.2)
[2021-12-26] MEDS ORDERED: METR500 PO (22:00)
[2021-12-26] MEDS ORDERED: CIPR500 PO (22:00)
== END 2021-12-26 22:56 | disposition home or self-care (01) ==
LOC: ER 14:07
PROVIDERS: Physician Assistant
DX: R19.7 Diarrhea, unspecified (principal); J44.9 Chronic obstructive pulmonary disease, unspecified; I50.9 Heart failure, unspecified; F17.210 Nicotine dependence, cigarettes, uncomplicated; Z79.899 Other long term (current) drug therapy; Z88.0 Allergy status to penicillin; Z88.2 Allergy status to sulfonamides; Z79.02 Long term (current) use of antithrombotics/antiplatelets
CPT/HCPCS: 36415; 71046; 80053; 84484; 85025; 93005; 93010; J0744; J7120

== ENCOUNTER 2023-01-25 08:37 | Day surgery (SDC) | payer MEDICARE ==
[~2023-01-25] VITALS: Ht 160 cm; Wt 68.2 kg
[~2023-01-25 08:37] MED LIST changes: +CIPR500 PO; +METR500 PO
--- NOTE | 2023-01-25 09:42 | NUR ---
01/25/23 0942 Leanne Bethea TETRACAINE ADMNISTERED TO THE R EYE AT 0927, PLEDGET PLACED AT 0928 BY [facility].PKB PT LAURA WELL
[2023-01-25 10:42] VITALS: BP 167/59
== END 2023-01-25 10:58 | disposition home or self-care (01) ==
LOC: ORSCSDS 08:37
PROVIDERS: Student in an Organized Health Care Education/Training Program
PROC: 08RJ3JZ Replacement of Right Lens with Synthetic Substitute, Percutaneous Approach (ICD-10-PCS; principal; 2023-01-25 10:30)
DX: H25.13 Age-related nuclear cataract, bilateral (principal); F17.210 Nicotine dependence, cigarettes, uncomplicated; Z79.899 Other long term (current) drug therapy; Z79.02 Long term (current) use of antithrombotics/antiplatelets; J44.9 Chronic obstructive pulmonary disease, unspecified; Z99.81 Dependence on supplemental oxygen; I10 Essential (primary) hypertension; I25.2 Old myocardial infarction; E78.00 Pure hypercholesterolemia, unspecified
CPT/HCPCS: J2250; J3010; J7040; V2632

== ENCOUNTER 2023-05-10 22:48 | Inpatient (IN) | payer MEDICARE ==
[~2023-05-10] VITALS: Ht 162.6 cm; Wt 67.1 kg
[~2023-05-10 22:48] MED LIST changes: +ALBU90OI INH; -ALBU90OI61 INH; -GABA100 PO; +GABA300 PO; -LISI20 PO; -STIOLTO RESPIMAT4 G1 IH; +STIOLTO RESPIMAT4 G1 INH; +ZESTRIL40 M1 PO
[2023-05-10 23:34] LABS: BASOPHILS ABSOLUTE AUTO 0.05 K/mm3 (0.00-0.23); BASOPHILS PERCENT AUTO 0 % (0-2); EOSINOPHILS PERCENT AUTO 0 % (0-6); Hematocrit 40.4 % (33.0-51.0); Hemoglobin 13.1 g/dL (11.5-16.0); IMMATURE GRAN ABSOLUTE AUTO 0.21 K/mm3 (0.00-0.10); IMMATURE GRAN PERCENT AUTO 1 % (0-1); LYMPHOCYTES ABSOLUTE AUTO 0.71 K/mm3 (0.84-5.20); LYMPHOCYTES PERCENT AUTO 4 % (21-46); MONOCYTES ABSOLUTE AUTO 1.04 K/mm3 (0.16-1.47); MONOCYTES PERCENT AUTO 6 % (4-13); Mean Corpuscular HGB Conc 32.4 g/dL (31.5-36.5); Mean Corpuscular Volume 93 fL (80-100); Mean Platelet Volume 10.9 fL (9.1-12.4); NEUTROPHILS ABSOLUTE AUTO 16.87 K/mm3 (1.96-9.15); NEUTROPHILS PERCENT AUTO 89 % (41-73); Platelet Count 168 K/mm3 (150-400); RDW Coefficient Variation 13.1 % (11.7-14.2); RDW Standard Deviation 44.2 fL (35.1-46.3); Red Blood Cell Count 4.36 M/mm3 (3.80-5.20); White Blood Cell Count 18.88 K/mm3 (4.00-11.30)
[2023-05-10 23:53] LABS: Albumin, Blood 3.6 g/dL (3.4-5.0); Bilirubin, Total 0.9 mg/dL (0.1-1.0); Bun/Creatinine Ratio 31.3 (12.0-20.0); Calcium, Blood 8.7 mg/dL (8.5-10.1); Creatinine, Blood 0.7 mg/dL (0.40-1.00); Globulin, Blood 3.7 g/dL (2.2-4.0); Potassium, Blood 4.1 mmol/L (3.5-5.5); Total Protein, Blood 7.3 g/dL (6.4-8.2)
[2023-05-11 00:10] LABS: Influenza A, PCR NEGATIVE (NEGATIVE); Influenza B, PCR NEGATIVE (NEGATIVE); Resp Syncytial Virus, PCR NEGATIVE (NEGATIVE); SARS-Cov-2 (COVID-19) PCR, MMC NEGATIVE (NEGATIVE)
[2023-05-11 00:45] LABS: Magnesium, Blood 1.8 mg/dL (1.6-2.4)
[2023-05-11 00:49] LABS: Phosphorus, Blood 3.5 mg/dL (2.5-4.9); Thyroid Stimulating Hormone 2.66 uIU/mL (0.360-4.800)
[2023-05-11 01:12] LABS: PCO2 Arterial 42.4 mmHg (35-45); PO2 Arterial 62.2 mmHg (80-100); pH Blood Arterial 7.45 (7.35-7.45)
[2023-05-11 03:00] LABS: Source, Urine Straight Cath
[2023-05-11 03:11] LABS: Bilirubin, Urine Neg (Neg); Blood, Urine 2+ (Neg); Glucose Qualitative, Urine Neg (Neg); Ketones, Urine 1+ (Neg); Leukocyte Esterase, Urine 3+ (Neg); Nitrite, Urine Neg (Neg); Protein, Urine 2+ (Neg); Urobilinogen, Urine NORM (Normal)
[2023-05-11 03:33] LABS: Appearance, Urine Turbid (Clear); Color, Urine Yellow (P-Yellow)
[2023-05-11 03:34] LABS: Bacteria Many /hpf; Red Blood Cells, Urine 0-2 /hpf (0-2); Squamous Epithelial Cells Few /hpf (Few); White Blood Cells, Urine TNTC /hpf (0-5)
[2023-05-11 05:59] LABS: BASOPHILS ABSOLUTE AUTO 0.03 K/mm3 (0.00-0.23); BASOPHILS PERCENT AUTO 0 % (0-2); Hematocrit 35.1 % (33.0-51.0); Hemoglobin 11.4 g/dL (11.5-16.0); LYMPHOCYTES ABSOLUTE AUTO 0.81 K/mm3 (0.84-5.20); LYMPHOCYTES PERCENT AUTO 5 % (21-46); MONOCYTES ABSOLUTE AUTO 0.88 K/mm3 (0.16-1.47); MONOCYTES PERCENT AUTO 5 % (4-13); Mean Corpuscular HGB 30.4 pg (26.0-34.0); Mean Corpuscular HGB Conc 32.5 g/dL (31.5-36.5); Mean Corpuscular Volume 94 fL (80-100); Mean Platelet Volume 11.5 fL (9.1-12.4); Platelet Count 136 K/mm3 (150-400); RDW Coefficient Variation 13.2 % (11.7-14.2); RDW Standard Deviation 45.3 fL (35.1-46.3); Red Blood Cell Count 3.75 M/mm3 (3.80-5.20); White Blood Cell Count 17.58 K/mm3 (4.00-11.30)
[2023-05-11 06:08] LABS: Albumin, Blood 3.1 g/dL (3.4-5.0); Albumin/Globulin Ratio 0.9 (0.8-1.8); Bilirubin, Total 0.8 mg/dL (0.1-1.0); Calcium, Blood 8.1 mg/dL (8.5-10.1); Creatinine, Blood 0.69 mg/dL (0.40-1.00); Globulin, Blood 3.4 g/dL (2.2-4.0); Potassium, Blood 4.1 mmol/L (3.5-5.5); Total Protein, Blood 6.5 g/dL (6.4-8.2)
[2023-05-11 06:13] LABS: EOSINOPHILS PERCENT AUTO 0 % (0-6); IMMATURE GRAN ABSOLUTE AUTO 0.16 K/mm3 (0.00-0.10); IMMATURE GRAN PERCENT AUTO 1 % (0-1); NEUTROPHILS PERCENT AUTO 89 % (41-73)
[2023-05-11 07:49] VITALS: BP 93/46
[2023-05-11 11:46] LABS: Bicarbonate Venous 26.4 mmol/L (24.0-30.0); PCO2 Venous 54.2 mmHg (38-42); pH Blood Venous 7.35 (7.34-7.37)
[2023-05-11] MEDS ORDERED: ATOR40TA PO (12:21)
[2023-05-11 15:26] VITALS: BP 98/56
--- NOTE | 2023-05-11 17:13 | NUR ---
SHIFT SUMMARY PT ARRIVED FROM ED AT START OF SHIFT. PT A&OX4 AND PLEASANT. CRITICAL LACTIC ACID OF 3.0 IN AM. NOTIFIED AND ORDERS GIVEN. REPEAT LACTIC ACID WAS 2.7. RESPIRATORY THERAPIST IN TO SEE PT AND GAVE BREATHING TREATMENT. PT'S BREATHING APPEARS LABORED. AT ABOUT 1530 OXYGEN INCREASED TO 5L VIA NC AND SATING IN THE LOW 90's. PT ALSO HAD ELEVATED TEMPERATURE OF 101.3. TYLENOL GIVEN PER EMAR AND TEMPERATURE DECREASED TO 98.8. DAUGHTER AT BEDSIDE. BED IN LOWEST POSITION AND CALL LIGHT IN REACH.
[2023-05-11 18:16] VITALS: BP 106/71
[2023-05-11 18:50] LABS: Base Excess Venous 5.1 mmol/L; Bicarbonate Venous 27.1 mmol/L (24.0-30.0); PCO2 Venous 54.8 mmHg (38-42); pH Blood Venous 7.36 (7.34-7.37)
--- NOTE | 2023-05-11 18:59 | NUR ---
PASSENGER VESSEL CHEF CALLED AT ABOUT 1750 TO REPORT PT'S HR WAS DROPPING DOWN TO THE 40'S THEN BACK UP INTO THE 60'S. ON THE SLOWER BEATS PT WAS "DROPPING P WAVES". THIS STARTED ABOUT 1600. CALLED AND NOTIFIED HIM OF CHANGES. EKG DONE AND IN CHART. NEW SET OF VITALS TAKEN. CONTINUING TO MONITOR FOR CHANGES. VERBALIZED PT MAY POSSIBLY NEED TO TRANSFER TO PCU IF TRENDS WORSEN.
[2023-05-11 19:46] VITALS: BP 84/66
[2023-05-11 22:01] VITALS: BP 99/50
--- NOTE | 2023-05-11 23:14 | NUR ---
1950 PT LYING IN BED, REPORTS PAIN IN L LE THAT IS ACHY, SHE IS UNABLE TO GIVE A NUMBER BUT REPORTS THAT IT ISN'T A REALLY HIGH NUMBE AND DOESN'T FEEL LIKE SHE NEEDS ANY MEDICATION FOR IT AT THIS TIME. REPORTS SOB THAT INCREASES WITH EXERTION, ON 4.5 L NC O2 AT 92%. TELE IS SR WITH SOME DROPPED P WAVES AT 72, OCCASIONAL SB DOWN TO 49. NO OTHER APPARENT SIGNS OF DISTRESS. CALL LIGHT IS IN REACH.
--- NOTE | 2023-05-11 23:17 | NUR ---
PT'S BP AT HS WAS 84/66, PT WAS ASYMPTOMATIC, RECHECK AT 2201 AND IT WAS 99/50. STILL ASYMPTOMATIC. WILL CONTINUE TO MONITOR BP. PT IS CURRENTLY LYING IN BED, EYES CLOSED, APPEARS TO BE RESTING. BREATHING IS EVEN, UNLABORED. NO APPARENT SIGNS OF DISTRESS. CALL LIGHT IS IN REACH.
--- NOTE | 2023-05-12 01:41 | NUR ---
PT LYING IN BED, EYES CLOSED, WAKES EASILY TO VERBAL STIMULI. PT RELAYS SHE HAD TO CALL FOR HELP R/T MARSHALL WAS OUT OF PLACE SLIGHTLY AND SHE NEEDED HER ATTENDS CHANGED. REPORTS SHE IS OKAY NOW AND DOES NOT NEED ANYTHING ELSE AT THIS TIME. NO OTHER APPARENT SIGNS OF DISTRESS. CALL LIGHT IS IN REACH.
--- NOTE | 2023-05-12 01:41 | NUR ---
0000 PT LYING IN BED, EYES CLOSED, BREATHING IS EVEN AND UNLABORED. NO APPARENT SIGNS OF DISTRESS. CALL LIGHT IS IN REACH.
[2023-05-12 04:44] VITALS: BP 130/61
[2023-05-12 04:48] LABS: Hematocrit 37.6 % (33.0-51.0); Mean Corpuscular HGB 30.1 pg (26.0-34.0); Mean Corpuscular HGB Conc 31.9 g/dL (31.5-36.5); Mean Corpuscular Volume 94 fL (80-100); Mean Platelet Volume 11.3 fL (9.1-12.4); Platelet Count 137 K/mm3 (150-400); RDW Coefficient Variation 13.3 % (11.7-14.2); RDW Standard Deviation 46.5 fL (35.1-46.3); Red Blood Cell Count 3.99 M/mm3 (3.80-5.20); White Blood Cell Count 17.11 K/mm3 (4.00-11.30)
--- NOTE | 2023-05-12 05:05 | NUR ---
PT IS AAO X 4, REPORTS SOB THAT INCREASES WITH EXERTION, ON 4.4L O2 NC AT 93%. REPORTED ACHY PAIN IN L LE, WAS UNABLE TO GIVE A NUMBER BUT DID REPORT THAT IT WAS NOT VERY HIGH. SHE DECLINED PAIN MEDS FOR IT. PT HAS A PUREWICK WITH LIGHT TO MEDIUM TEA COLORED CLEAR URINE. TELE WAS SR WITH SOME DROPPED P WAVES AT 72 WITH OCCASIONAL SB DOWN TO 49. FRAGILE SKIN ON UE'S WITH SOME SCATTERED BRUISES AND SCABS, BRUISE TO R ELBOW.
--- NOTE | 2023-05-12 05:05 | NUR ---
0400 PT LYING IN BED, AWAKE, PT DENIED NEED FOR ANYTHING AT THIS TIME. NO APPARENT SIGNS OF DISTRESS. CALL LIGHT IS IN REACH.
[2023-05-12 05:13] LABS: Albumin, Blood 2.6 g/dL (3.4-5.0); Albumin/Globulin Ratio 0.7 (0.8-1.8); Bilirubin, Total 0.6 mg/dL (0.1-1.0); Calcium, Blood 8.4 mg/dL (8.5-10.1); Creatinine, Blood 0.72 mg/dL (0.40-1.00); Globulin, Blood 3.7 g/dL (2.2-4.0); Total Protein, Blood 6.3 g/dL (6.4-8.2)
--- NOTE | 2023-05-12 05:34 | NUR ---
PT LYING IN BED, EYES CLOSED, APPEARS TO BE RESTING. BREATHING IS EVEN, UNLABORED. NO APPARENT SIGNS OF DISTRESS. CALL LIGHT IS IN REACH. NO OTHER CHANGES THIS SHIFT.
[2023-05-12 05:38] LABS: BAND PERCENT MAN 9 % (0-8); BASOPHILS PERCENT MAN 0 % (0-2); EOSINOPHILS ABSOLUTE MAN 0.17 K/mm3 (0.00-0.68); EOSINOPHILS PERCENT MAN 1 % (0-6); LYMPHOCYTES ABSOLUTE MAN 1.36 K/mm3 (0.84-5.20); LYMPHOCYTES PERCENT MAN 8 % (21-46); MONOCYTES ABSOLUTE MAN 0.85 K/mm3 (0.16-1.47); MONOCYTES PERCENT MAN 5 % (4-13); NEUTROPHILS ABSOLUTE MAN 14.71 K/mm3 (1.96-9.15); SEG NEUTROPHILS PERCENT MAN 77 % (41-73); TOTAL CELLS COUNTED 100
[2023-05-12 07:08] VITALS: BP 120/57
[2023-05-12 16:59] VITALS: BP 120/48
--- NOTE | 2023-05-12 18:21 | NUR ---
SHIFT SUMMARY: PT A/O X 4, FORGETFUL AT TIMES, BEDREST TODAY PT REPORTED SHE FELT TOO WEAK TO GET UP, ALSO WAS SOB WITH SITTING UPRIGHT FOR TOO LONG. BD PROTOCOL INITIATED AND BREATHING TX STARTED WITH APPEARED TO HELP WITH DYSPNEA. PT HAS HAD 3 VERY SOFT BM'S TODAY. URINE OUTPUT IS CONTRACT ADMINISTRATIVE ASSISTANT TODAY. PT CONTINUES TO BE ON 4 LPM VIA NC.
[2023-05-12 20:20] VITALS: BP 152/53
--- NOTE | 2023-05-13 05:06 | NUR ---
END OF SHIFT SUMMARY PT SLEPT WELL OVERNIGHT. PT A&O x3-4, VSS, AFEBRILE. PT ADMITTED FOR R UPPER LOBE PNEUMONIA. PT 91% O2 SATURATION ON 3L VIA NC. RESP RATE EVEN AND UNLABORED. PT STATED THAT SHE SLEPT SO MUCH BETTER LAST NIGHT THEN THE PREVIOUS NIGHTS HERE IN THE HOSPITAL. PT DENIED PAIN/DISCOMFORT. CALL LIGHT WITHIN REACH, WCTM.
[2023-05-13 05:12] VITALS: BP 178/62
[2023-05-13 05:15] LABS: BASOPHILS ABSOLUTE AUTO 0.05 K/mm3 (0.00-0.23); BASOPHILS PERCENT AUTO 1 % (0-2); EOSINOPHILS ABSOLUTE AUTO 0.12 K/mm3 (0.00-0.68); EOSINOPHILS PERCENT AUTO 1 % (0-6); Hematocrit 36.1 % (33.0-51.0); Hemoglobin 11.6 g/dL (11.5-16.0); IMMATURE GRAN ABSOLUTE AUTO 0.06 K/mm3 (0.00-0.10); IMMATURE GRAN PERCENT AUTO 1 % (0-1); LYMPHOCYTES ABSOLUTE AUTO 1.44 K/mm3 (0.84-5.20); LYMPHOCYTES PERCENT AUTO 15 % (21-46); MONOCYTES PERCENT AUTO 5 % (4-13); Mean Corpuscular HGB 29.7 pg (26.0-34.0); Mean Corpuscular HGB Conc 32.1 g/dL (31.5-36.5); Mean Corpuscular Volume 93 fL (80-100); Mean Platelet Volume 11.9 fL (9.1-12.4); NEUTROPHILS ABSOLUTE AUTO 7.41 K/mm3 (1.96-9.15); NEUTROPHILS PERCENT AUTO 77 % (41-73); Platelet Count 141 K/mm3 (150-400); RDW Coefficient Variation 13.4 % (11.7-14.2); RDW Standard Deviation 45.7 fL (35.1-46.3); White Blood Cell Count 9.58 K/mm3 (4.00-11.30)
[2023-05-13 05:47] LABS: Bun/Creatinine Ratio 33.3 (12.0-20.0); Calcium, Blood 8.3 mg/dL (8.5-10.1); Creatinine, Blood 0.57 mg/dL (0.40-1.00); Potassium, Blood 4.2 mmol/L (3.5-5.5)
[2023-05-13 07:52] VITALS: BP 117/82
[2023-05-13 16:47] VITALS: BP 86/45
[2023-05-13 17:52] VITALS: BP 131/71
--- NOTE | 2023-05-13 19:23 | NUR ---
SHIFT SUMMARY: PT A/O X 4, ONE ASSIST WITH WALKER AND GB, PLEASANT AND COOPERATIVE. PT UP TO CHAIR MOST OF THE DAY. EATING WELL. PT DID HAVE LOW BP THIS AFTERNOON BUT ENCOURAGED HER TO DRINK 500 ML OF WATER AND BP IMPROVED TO NORMAL RANGE. PT WAS ASYMPTOMATIC. NO OTHER CONCERNS.
[2023-05-13 20:34] VITALS: BP 175/59
[2023-05-14 04:31] VITALS: BP 142/70
[2023-05-14 06:01] LABS: BASOPHILS ABSOLUTE AUTO 0.04 K/mm3 (0.00-0.23); BASOPHILS PERCENT AUTO 1 % (0-2); EOSINOPHILS ABSOLUTE AUTO 0.21 K/mm3 (0.00-0.68); EOSINOPHILS PERCENT AUTO 3 % (0-6); Hematocrit 37.2 % (33.0-51.0); IMMATURE GRAN ABSOLUTE AUTO 0.07 K/mm3 (0.00-0.10); IMMATURE GRAN PERCENT AUTO 1 % (0-1); LYMPHOCYTES ABSOLUTE AUTO 1.23 K/mm3 (0.84-5.20); LYMPHOCYTES PERCENT AUTO 19 % (21-46); MONOCYTES ABSOLUTE AUTO 0.63 K/mm3 (0.16-1.47); MONOCYTES PERCENT AUTO 10 % (4-13); Mean Corpuscular HGB 30.1 pg (26.0-34.0); Mean Corpuscular HGB Conc 32.3 g/dL (31.5-36.5); Mean Corpuscular Volume 93 fL (80-100); Mean Platelet Volume 11.1 fL (9.1-12.4); NEUTROPHILS ABSOLUTE AUTO 4.25 K/mm3 (1.96-9.15); NEUTROPHILS PERCENT AUTO 66 % (41-73); Platelet Count 161 K/mm3 (150-400); RDW Coefficient Variation 13.2 % (11.7-14.2); RDW Standard Deviation 45.8 fL (35.1-46.3); Red Blood Cell Count 3.99 M/mm3 (3.80-5.20); White Blood Cell Count 6.43 K/mm3 (4.00-11.30)
[2023-05-14 08:14] VITALS: BP 175/83
[2023-05-14] MEDS ORDERED: VISBIOME 112.51 EACH PO (12:32)
[2023-05-14] MEDS ORDERED: CEFP200 PO (12:32)
--- NOTE | 2023-05-14 15:19 | NUR ---
PATIENT DISCHARGED TO HOME ACCOMPANIED BY HER DAUGHTER, WHO IS DRIVING. HOME OXYGEN RE-EVAL DONE. IV SALINE LOCK AND TELEMETRY REMOVED WITHOUT INCIDENT. CURRENTLY USING O2 @ 3 L/MIN AT REST, NEEDS 4 L/MIN NC WITH ACTIVITY. SON HAS ALREADY PICKED UP NEW MEDICATIONS. VERBALIZED UNDERSTANDING OF D/C INSTRUCTIONS, IMPORTANT ITEMS WERE HIGHLIGHTED. OFF UNIT VIA W/C AT 1400. NO PERSONAL BELONGINGS LEFT BEHIND IN ROOM.
== END 2023-05-14 14:09 | disposition home health service (06) | DRG 871 ==
LOC: ER 22:48 → ERHOLD 22:49 → MEDS 22:49 → ERHOLD 22:49 → MEDS 05-11 07:29 → ERHOLD 05-11 07:29 → MEDS 05-11 13:24
PROVIDERS: Emergency Medicine; Family Medicine; Student in an Organized Health Care Education/Training Program; ADMIT Internal Medicine
PROC: 3E03329 Introduction of Other Anti-infective into Peripheral Vein, Percutaneous Approach (ICD-10-PCS; principal; 2023-05-10)
PROC: 4A133R1 Monitoring of Arterial Saturation, Peripheral, Percutaneous Approach (ICD-10-PCS; 2023-05-11)
DX: A41.9 Sepsis, unspecified organism (principal); G92.8 Other toxic encephalopathy; J18.9 Pneumonia, unspecified organism; J96.21 Acute and chronic respiratory failure with hypoxia; J44.0 Chronic obstructive pulmonary disease with (acute) lower respiratory infection; N39.0 Urinary tract infection, site not specified; Z66 Do not resuscitate; Z11.52 Encounter for screening for COVID-19; D69.6 Thrombocytopenia, unspecified; I25.10 Atherosclerotic heart disease of native coronary artery without angina pectoris; E78.5 Hyperlipidemia, unspecified; I73.9 Peripheral vascular disease, unspecified; I10 Essential (primary) hypertension; R53.81 Other malaise; F17.210 Nicotine dependence, cigarettes, uncomplicated; Z85.51 Personal history of malignant neoplasm of bladder
CPT/HCPCS: 0241U; 36415; 36600; 71045; 80048; 80053; 81001; 82803; 83605; 83735; 83880; 84100; 84145; 84443; 84484; 85025; 87040; 87086; 92526; 92610; 93005; 93010; 94640; 94664; 94760; 94761; 94762; 96365; 96375; 97110; 97112; 97161; 97530; 99285-25; A9270; J0456; J0696; J1650; J7040; J7050; P9612